=== PATIENT | male | born 1960 | race African-American/Black ===

== ENCOUNTER 2017-02-28 17:45 | Observation (INO) ==
[2017-02-28 19:14] LABS: Basophils # 0.1 K/mcL (0.0-0.2); Basophils % 0.5 %; Eosinophils # 0.3 K/mcL (0.0-0.6); Eosinophils % 2.7 %; Hematocrit 41.2 % (37.5-50.1); Hemoglobin 13.2 g/dL (12.9-16.9); Immature Granulocytes % 0.3 % (0-4); Mean Corpuscular Hemoglobin 26.5 pg (28.0-33.3); Mean Corpuscular Volume 82.6 fL (83.0-100.0); Mean Platelet Volume 10.8 fL (9.4-12.4); Monocytes # 1.2 K/mcL (0.0-1.3); Monocytes % 10.5 %; Platelet Count 236 K/mcL (140-400); Red Blood Count 4.99 M/mcL (4.19-5.50); Red Cell Distribution Width 14.6 % (11.5-14.5)
[2017-02-28 19:30] LABS: Alanine Aminotransferase 29 Units/L (0-55); Albumin 3.6 g/dL (3.5-5.0); Alkaline Phosphatase 79 Units/L (38-126); Aspartate Amino Transferase 42 Units/L (5-34); BUN/Creatinine Ratio 18 (6-26); Bilirubin,Total 0.6 mg/dL (0.2-1.2); Blood Urea Nitrogen 22 mg/dL (8-26); Calcium 9.5 mg/dL (8.6-10.8); Carbon Dioxide 28 mEq/L (19-29); Chloride 104 mEq/L (98-109); Globulin 3.7 g/dL (2.4-3.5); Glucose 253 mg/dL (70-99); Osmolality,Calculated 302 (280-300); Sodium 140 mEq/L (136-145); Total Protein 7.3 g/dL (6.0-8.3); eGFR For African Americans > 60 (> 60); eGFR For Non-African Americans > 60 (> 60)
[2017-02-28] MEDS ORDERED: 0.9 % Sodium Chloride 1,000 ML IVC ONE ×2 (19:58)
[2017-02-28 20:27] LABS: Lipase 36 Units/L (8-78); Magnesium 1.7 mg/dL (1.6-2.6)
[2017-02-28 20:51] LABS: Bilirubin,Urine Negative (Negative); Blood,Urine Negative (Negative); Clarity,Urine Clear (Clear); Color,Urine Yellow (Yellow); Glucose,Urine (UA) 250 mg/dL (Normal); Ketones,Urine Negative (Negative); Leukocyte Esterase,Urine Negative (Negative); Nitrite,Urine Negative (Negative); PH,Urine 5.5 pH Units (5.0-8.0); Protein,Urine Negative (Neg-Trace); Specific Gravity,Urine 1.027 (1.010-1.025); Urobilinogen,Urine Normal (Normal)
[2017-02-28] MEDS ORDERED: Acetaminophen 325 MG TABLET PO PRN (21:41)
[2017-02-28] MEDS ORDERED: 0.9 % Sodium Chloride 1,000 ML IVC SCH (21:45)
[2017-02-28] MEDS ORDERED: Dextrose Gel 15 GM PO PRN ×2 (21:45)
[2017-02-28] MEDS ORDERED: *HR* Dextrose 50 % in Water (Syg) 50 ML SYRINGE IVP PRN (21:45)
[2017-02-28] MEDS ORDERED: D5% in Water 1,000 ML IVC PRN (21:45)
--- NOTE | 2017-02-28 21:54 | Internal Med History&Physical ---
Date of Encounter: 02/28/17 Time of Encounter: 21:51 Assessment and Plan (1) Rhabdomyolysis Current visit: Yes Status: Acute IV fluids hydration, trend CPK, I's and O's, all statin and lisinopril HCTZ combination pill Qualifiers: Qualified Code(s): M62.82 - Rhabdomyolysis (2) Diabetes 1.5, managed as type 1 Current visit: Yes Status: Acute Continue insulin sliding scale and Lantus. Hold metformin (3) HTN (hypertension) Current visit: Yes Status: Acute Continue other blood pressure medicine. He is not on a calcium channel laci Qualifiers: Qualified Code(s): I10 - Essential (primary) hypertension (4) HLD (hyperlipidemia) Current visit: Yes Status: Acute Hold statin for now Qualifiers: Qualified Code(s): E78.5 - Hyperlipidemia, unspecified Internal Medicine - H&P: HPI Chief complaint: Muscle ache History of present illness: Mr. Garnica is a 56 year old male with a history of diabetes on insulin, hypertension, hyperlipidemia on statin who presents with five-day history of worsening generalized muscle cramps. He was found to have rhabdomyolysis with elevated CPK. Symptoms began 5 days ago when he reported cramps to his bilateral thighs and arms and shoulders. He denies any dehydration or recent exertional activity. On review he reports he having a cortisone shot and a right knee tap for knee effusion. He is on atorvastatin at home. In the ER he was found to have an elevated CPK in the 1000s. Chest x-ray showed bibasilar air space opacities but he denies any clinical evidence of pneumonia, imaging findings possibly relating to atelectasis Past Med Surg Social Fam HX - Past Medical History Medical history: diabetes, other Psychiatric history: no psych history - Social History Smoking Status: Former smoker Smokeless Tobacco Status: No Alcohol use: none Drug use: none Internal Medicine - H&P: Meds Aspirin Enteric Coated [Aspirin EC] 81 mg PO DAILY 01/14/16 [History] Insulin Glargine [Lantus] 80 unit SQ BID 01/14/16 [History] Meloxicam 7.5 mg PO BID 01/14/16 [History] Albuterol Sulfate [Albuterol Inhaler] 2 puff IH Q6H PRN 02/28/17 [History] Atorvastatin Calcium [Lipitor] 20 mg PO DAILY 02/28/17 [History] Cetirizine HCl [Zyrtec] 10 mg PO DAILY 02/28/17 [History] Eucerin Creme [Eucerin Creme] 1 appl TP DAILY PRN 02/28/17 [History] Gabapentin [Neurontin] 600 mg PO TID 02/28/17 [History] Insulin ASPART [Novolog Flexpen] 5 unit SQ BID 02/28/17 [History] Insulin ASPART [Novolog Flexpen] 10 unit SQ BID 02/28/17 [History] Lisinopril/Hydrochlorothiazide [Zestoretic 20-25 mg Tablet] 1 each PO DAILY [History] Metformin HCl [Glucophage] 1,000 mg PO BID 02/28/17 [History] Metoprolol [Lopressor] 12.5 mg PO BID 02/28/17 [History] Mupirocin [Bactroban Oint] 1 appl TP BID PRN 02/28/17 [History] Omeprazole 20 mg PO DAILY 02/28/17 [History] Sildenafil Citrate [Viagra] 100 mg PO AD PRN 02/28/17 [History] Sodium Chloride [Rhinaris] 2 spray NS DAILY 02/28/17 [History] Allergies No Known Allergies Allergy (Verified 02/28/17 20:22) All Systems PM: A 10-system review of systems was performed and is negative for pertinent findings except as documented above in the HPI. Review of systems: ROS 14 point review of systems reviewed. Pertinent positive or negative as per HPI or otherwise reviewed as negative - Constitutional Vitals: Temp Pulse Resp BP Pulse Ox 97.6 F 91 20 158/75 94 02/28/17 21:39 02/28/17 21:39 02/28/17 21:39 02/28/17 21:39 02/28/17 21:39 Exam: General - AAO x 3 Psych - Appropriate affect/speech. No agitation Eyes - JEANIE. Eye lids intact. No scleral icterus ENT - Oral mucosa pink, dentition intact. External ear clear/dry/intact. No thyromegaly Lymphatics - No cervical/inguinal lympadenopathy Neuro - No gross peripheral or central neuro deficits with intact CN 2-12 exam Heart - Sinus. RRR. S1 and S2 present. No added HS/murmurs appreciated. No elevated JVD appreciated. No calf swellings/erythema Lung - Adequate air entry b/l, No crackes/wheezes appreciated GI - Soft, non-tender. No hepatosplenomegaly/ascities. BS+ - No CVA/suprapubic tenderness or palpable bladder distension Skin - Intact. No rash/petechiae/ecchymosis. Warm extremities MSK - Joints with normal ROM. Muscle cramps in the thighs and shoulders and upper arms Internal Med - H&P Results - Labs CBC & Chem 7: 02/28/17 18:57 02/28/17 18:57
--- NOTE | 2017-02-28 22:02 | Emergency Department Note ---
Disposition Clinical Impression: Rhabdomyolysis Qualifiers: Qualified Code(s): M62.82 - Disposition: Admitted As Inpatient Condition: Good General Adult HPI - General Chief complaint: ED General Medical Stated complaint: "Dehydration" From UC Time Seen by Provider: 02/28/17 18:36 Source: patient Mode of arrival: ambulatory Limitations: no limitations Nursing Notes Reviewed: Yes Vital Signs Reviewed: Yes - History of Present Illness HPI Narrative: 56-year-old male sent in from the urgent care for evaluation of rhabdomyolysis. Patient states that he has had increasing cramping of the bilateral lower and upper extremities over the past week, generally with exertion. Denies chest pain or shortness of breath or palpitations. Denies recent injury or changes in medications however he does take a statin medication for his cholesterol. Patient denies fever, chills, nausea, vomiting. Denies illicit drug use or alcohol intake. Pain Scale: 10 - Related Data Home Medications Medication Instructions Recorded Confirmed Aspirin Enteric Coated [Aspirin EC] 81 mg PO DAILY 01/14/16 02/28/17 Insulin Glargine [Lantus] 80 unit SQ BID 01/14/16 02/28/17 Meloxicam 7.5 mg PO BID 01/14/16 02/28/17 Albuterol Sulfate [Albuterol 2 puff IH Q6H PRN 02/28/17 02/28/17 Inhaler] Atorvastatin Calcium [Lipitor] 20 mg PO DAILY 02/28/17 02/28/17 Cetirizine HCl [Zyrtec] 10 mg PO DAILY 02/28/17 02/28/17 Eucerin Creme [Eucerin Creme] 1 appl TP DAILY PRN 02/28/17 02/28/17 Gabapentin [Neurontin] 600 mg PO TID 02/28/17 02/28/17 Insulin ASPART [Novolog Flexpen] 5 unit SQ BID 02/28/17 02/28/17 Insulin ASPART [Novolog Flexpen] 10 unit SQ BID 02/28/17 02/28/17 Lisinopril/Hydrochlorothiazide 1 each PO DAILY 02/28/17 02/28/17 [Zestoretic 20-25 mg Tablet] Metformin HCl [Glucophage] 1,000 mg PO BID 02/28/17 02/28/17 Metoprolol [Lopressor] 12.5 mg PO BID 02/28/17 02/28/17 Mupirocin [Bactroban Oint] 1 appl TP BID PRN 02/28/17 02/28/17 Omeprazole 20 mg PO DAILY 02/28/17 02/28/17 Sildenafil Citrate [Viagra] 100 mg PO AD PRN 02/28/17 02/28/17 Sodium Chloride [Rhinaris] 2 spray NS DAILY 02/28/17 02/28/17 Allergies Allergy/AdvReac Type Severity Reaction Status Date / Time No Known Allergies Allergy Verified 02/28/17 20:22 All systems ED: reviewed and negative except as stated. Constitutional: Reports: weakness. Denies: fever, chills Cardiovascular: Denies: chest pain, palpitations, dyspnea on exertion Respiratory: Denies: cough, dyspnea, wheezes, hemoptysis Gastrointestinal: Denies: abdominal pain, nausea, vomiting Past Medical History - Past Medical History Attestation: Yes The following information was validated with the patient. Source: patient Medical history: Reports: diabetes, other Psychiatric history: Reports: no psych history - Social History Smoking Status: Former smoker Smokeless Tobacco Status: No Alcohol use: Reports: none Drug use: Reports: none Physical Exam General: Alert and in no acute distress Skin: Warm, dry, intact Head: Normocephalic and atraumatic Neck: Supple, trachea midline and no tenderness Cardiovascular: RRR, no murmur, normal perfusion Respiratory: CTAB, no wheezing, cough, or respiratory distress Musculoskeletal: Normal strength, no tenderness, swelling or deformity GI: Soft, nontender, nondistended. Bowel sounds present Neuro: A&O to person, place, time and situation. No focal deficits noted on exam Psychiatric: cooperative and appropriate mood and affect. - General Limitations: no limitations General appearance: alert Course Vital Signs Temperature 98 F 02/28/17 17:55 Pulse Rate 93 02/28/17 17:55 Respiratory Rate 20 02/28/17 17:55 Blood Pressure 125/82 02/28/17 17:55 O2 Sat by Pulse Oximetry 93 02/28/17 17:55 Temperature 97.6 F 02/28/17 21:39 Pulse Rate 91 02/28/17 21:39 Respiratory Rate 20 02/28/17 21:39 Blood Pressure 158/75 02/28/17 21:39 O2 Sat by Pulse Oximetry 94 02/28/17 21:39 Oxygen Delivery Oxygen Delivery Room Air Medical Decision Making - MDM Narrative Medical decision making narrative: Patient will be admitted for care of rhabdomyolysis. - Medical Records Medical records reviewed: Yes I reviewed the patient's medical records. - Lab Data Lab results reviewed: Yes I reviewed the patient's lab results. Result diagrams: 02/28/17 18:57 02/28/17 18:57 Lab Results 02/28/17 02/28/17 02/28/17 Range/Units 18:57 18:57 18:57 WBC 11.6 H (4.3-11.1) K/mcL RBC 4.99 (4.19-5.50) M/mcL Hgb 13.2 (12.9-16.9) g/dL Hct 41.2 (37.5-50.1) % MCV 82.6 L (83.0-100.0) fL MCH 26.5 L (28.0-33.3) pg MCHC 32.0 (31.6-35.5) g/dL RDW 14.6 H (11.5-14.5) % Plt Count 236 (140-400) K/mcL MPV 10.8 (9.4-12.4) fL Immature Gran % 0.3 (0-4) % Seg Neutrophils % 60.0 % Lymphocytes % 26.0 % Monocytes % 10.5 % Eosinophils % 2.7 % Basophils % 0.5 % Neutrophils # 7.0 (1.6-8.9) K/mcL Lymphocytes # 3.0 (0.6-4.6) K/mcL Monocytes # 1.2 (0.0-1.3) K/mcL Eosinophils # 0.3 (0.0-0.6) K/mcL Basophils # 0.1 (0.0-0.2) K/mcL Sodium 140 (136-145) mEq/L Potassium 4.0 (3.5-4.5) mEq/L Chloride 104 (98-109) mEq/L Carbon Dioxide 28 (19-29) mEq/L BUN 22 (8-26) mg/dL Creatinine 1.19 (0.72-1.25) mg/dL Est GFR ( Amer) > 60 (> 60) Est GFR (Non-Af Amer) > 60 (> 60) BUN/Creatinine Ratio 18 (6-26) Glucose 253 H (70-99) mg/dL Calculated Osmolality 302 H (280-300) Calcium 9.5 (8.6-10.8) mg/dL Magnesium 1.7 (1.6-2.6) mg/dL Total Bilirubin 0.6 (0.2-1.2) mg/dL AST 42 H (5-34) Units/L ALT 29 (0-55) Units/L Alkaline Phosphatase 79 (38-126) Units/L Troponin I 0.00 (0-0.03) ng/mL Serum Total Protein 7.3 (6.0-8.3) g/dL Albumin 3.6 (3.5-5.0) g/dL Globulin 3.7 H (2.4-3.5) g/dL Albumin/Globulin Ratio 1.0 L (1.1-2.2) Lipase 36 (8-78) Units/L Urine Color (Yellow) Urine Clarity (Clear) Urine pH (5.0-8.0) pH Units Ur Specific [place] (1.010-1.025) Urine Protein (Neg-Trace) mg/dL Urine Glucose (UA) (Normal) mg/dL Urine Ketones (Negative) mg/dL Urine Blood (Negative) Urine Nitrite (Negative) Urine Bilirubin (Negative) Urine Urobilinogen (Normal) mg/dL Ur Leukocyte Esterase (Negative) Ur Culture Indicated? (NO) 02/28/17 Range/Units 20:44 WBC (4.3-11.1) K/mcL RBC (4.19-5.50) M/mcL Hgb (12.9-16.9) g/dL Hct (37.5-50.1) % MCV (83.0-100.0) fL MCH (28.0-33.3) pg MCHC (31.6-35.5) g/dL RDW (11.5-14.5) % Plt Count (140-400) K/mcL MPV (9.4-12.4) fL Immature Gran % (0-4) % Seg Neutrophils % % Lymphocytes % % Monocytes % % Eosinophils % % Basophils % % Neutrophils # (1.6-8.9) K/mcL Lymphocytes # (0.6-4.6) K/mcL Monocytes # (0.0-1.3) K/mcL Eosinophils # (0.0-0.6) K/mcL Basophils # (0.0-0.2) K/mcL Sodium (136-145) mEq/L Potassium (3.5-4.5) mEq/L Chloride (98-109) mEq/L Carbon Dioxide (19-29) mEq/L BUN (8-26) mg/dL Creatinine (0.72-1.25) mg/dL Est GFR ( Amer) (> 60) Est GFR (Non-Af Amer) (> 60) BUN/Creatinine Ratio (6-26) Glucose (70-99) mg/dL Calculated Osmolality (280-300) Calcium (8.6-10.8) mg/dL Magnesium (1.6-2.6) mg/dL Total Bilirubin (0.2-1.2) mg/dL AST (5-34) Units/L ALT (0-55) Units/L Alkaline Phosphatase (38-126) Units/L Troponin I (0-0.03) ng/mL Serum Total Protein (6.0-8.3) g/dL Albumin (3.5-5.0) g/dL Globulin (2.4-3.5) g/dL Albumin/Globulin Ratio (1.1-2.2) Lipase (8-78) Units/L Urine Color Yellow (Yellow) Urine Clarity Clear (Clear) Urine pH 5.5 (5.0-8.0) pH Units Ur Specific [place] 1.027 H (1.010-1.025) Urine Protein Negative (Neg-Trace) mg/dL Urine Glucose (UA) 250 H (Normal) mg/dL Urine Ketones Negative (Negative) mg/dL Urine Blood Negative (Negative) Urine Nitrite Negative (Negative) Urine Bilirubin Negative (Negative) Urine Urobilinogen Normal (Normal) mg/dL Ur Leukocyte Esterase Negative (Negative) Ur Culture Indicated? NO (NO) - Radiology Data Radiology results reviewed: Yes I reviewed the patient's radiology results.
[2017-03-01] MEDS ORDERED: *HR* Enoxaparin 40 MG/0.4 ML SYRINGE SQ SCH (06:00)
[2017-03-01 06:47] LABS: BUN/Creatinine Ratio 16 (6-26); Blood Urea Nitrogen 18 mg/dL (8-26); Carbon Dioxide 30 mEq/L (19-29); Chloride 106 mEq/L (98-109); Creatine Kinase 1048 Units/L (30-200); Glucose 220 mg/dL (70-99); Osmolality,Calculated 301 (280-300); Sodium 141 mEq/L (136-145); eGFR For African Americans > 60 (> 60); eGFR For Non-African Americans > 60 (> 60)
[2017-03-01] MEDS ORDERED: NON-FORMULARY MEDICATION 1 EACH EACH (Insulin Glargine [Lantus] 80 UNIT) SQ SCH (09:00)
[2017-03-01] MEDS ORDERED: Insulin DETEMIR 100 UNIT/ML X5UNITS SQ SCH (09:00)
[2017-03-01] MEDS ORDERED: Aspirin Enteric Coated 81 MG Tablet PO SCH (09:00)
[2017-03-01] MEDS: Insulin LISPRO 300 UNITS/3 ML VIAL SQ SCH ×2 (09:11→11:51)
[2017-03-01] MEDS: Gabapentin 300 MG CAPSULE PO SCH ×2 (09:13→15:09)
[2017-03-01 14:56] VITALS: BP 157/91
--- NOTE | 2017-03-01 15:30 | Discharge Summary ---
Date of Encounter: 03/01/17 Time of Encounter: 09:00 - Discharge Diagnosis (1) Rhabdomyolysis Priority: Primary Status: Acute Qualifiers: Rhabdomyolysis type: non-traumatic Qualified Code(s): M62.82 - Rhabdomyolysis (2) Diabetes mellitus Priority: Secondary Status: Chronic Qualifiers: Diabetes mellitus type: type 2 Diabetes mellitus complication status: without complication Diabetes mellitus terminal computer operator insulin use: with terminal computer operator use Qualified Code(s): E11.9 - Type 2 diabetes mellitus without complications ; Z79.4 - FPC (current) use of insulin (3) HTN (hypertension) Priority: Secondary Status: Chronic Qualifiers: Hypertension type: essential hypertension Qualified Code(s): I10 - Essential (primary) hypertension (4) HLD (hyperlipidemia) Priority: Secondary Status: Chronic Qualifiers: Hyperlipidemia type: unspecified Qualified Code(s): E78.5 - Hyperlipidemia , unspecified - Discharge Medications Home Medications: Aspirin Enteric Coated [Aspirin EC] 81 mg PO DAILY 01/14/16 [History] Insulin Glargine [Lantus] 80 unit SQ BID 01/14/16 [History] Meloxicam 7.5 mg PO BID 01/14/16 [History] Albuterol Sulfate [Albuterol Inhaler] 2 puff IH Q6H PRN 02/28/17 [History] Cetirizine HCl [Zyrtec] 10 mg PO DAILY 02/28/17 [History] Eucerin Creme 1 appl TP DAILY PRN 02/28/17 [History] Gabapentin [Neurontin] 600 mg PO TID 02/28/17 [History] Insulin ASPART [Novolog Flexpen] 5 unit SQ BID 02/28/17 [History] Insulin ASPART [Novolog Flexpen] 10 unit SQ BID 02/28/17 [History] Lisinopril/Hydrochlorothiazide [Zestoretic 20-25 mg Tablet] 1 each PO DAILY [History] Metformin HCl [Glucophage] 1,000 mg PO BID 02/28/17 [History] Metoprolol [Lopressor] 12.5 mg PO BID 02/28/17 [History] Mupirocin [Bactroban Oint] 1 appl TP BID PRN 02/28/17 [History] Omeprazole 20 mg PO DAILY 02/28/17 [History] Sildenafil Citrate [Viagra] 100 mg PO AD PRN 02/28/17 [History] Sodium Chloride [Rhinaris] 2 spray NS DAILY 02/28/17 [History] Allergies/Adverse Reactions: Allergies No Known Allergies Allergy (Verified 02/28/17 20:22) Date of admission: 02/28/17 21:41 Primary care physician: PCP ID Discharging clinician: Maricel Ramirez Anticipated date of discharge: 03/01/17 - Patient Status Disposition: Home, Self-Care Condition: Good Functional capacity at discharge: independent ambulation Overall status at discharge: patient is back to baseline - Discharge Instructions Follow Up With: [facility] [Outside] - 03/09/17 10:30 am Forms: ED Satisfaction Letter, Work/School Release - Diet and Activity Activity: resume usual activities as tolerated Diet: diabetic diet, low fat, low cholesterol, low salt diet Hospital course: Mr. Garnica is a 56 year old male with the above medical problems, admitted with generalized myalgia and muscle cramps. Initial labs done in the emergency room showed mildly elevated creatinine kinase up 1048. Patient was started on aggressive IV hydration and given supportive care. He is noted to be significantly improved this morning upon my evaluation. He tolerates oral diet and denies any complaints. His blood sugars were noted to be high and he was restarted on his home insulin dose. ESR and CRP was noted to be normal. Patient's creatinine kinase is improving with IV hydration. He is now medically stable for discharge with outpatient follow-up. He was noted to be on statin and this is being held at discharge as statins could cause myopathy and rhabdomyolysis. - Time Spent with Patient Total time spent providing and/or coordinating discharge services: Greater than 30 minutes (40 min) - Constitutional Vitals: Temp Pulse Resp BP Pulse Ox 97.9 F 81 17 157/91 95 03/01/17 14:55 03/01/17 14:55 03/01/17 14:55 03/01/17 14:55 03/01/17 14:55 General appearance: Present: A&O X 3, answers questions appropriately - Respiratory Respiratory exam: Present: CTAB. Absent: accessory muscle use, rales, rhonchi, wheezes - Cardiovascular Cardiovascular exam: Present: RRR, +S1, +S2. Absent: diastolic murmur, gallop, rubs, systolic murmur
[2017-03-01] MEDS ORDERED: Insulin LISPRO 300 UNITS/3 ML VIAL SQ SCH (21:00)
== END 2017-03-01 15:55 | disposition home or self-care (01) ==
LOC: EMEROO 17:45 → 3ANU 17:45
PROVIDERS: ADMIT Internal Medicine; ATTEND Internal Medicine